=== PATIENT | female | born 1950 | race Caucasian/White ===

== ENCOUNTER 2024-07-17 08:37 | Outpatient (CLI) | payer OTHER ==
[2024-07-17] MEDS ORDERED: GADOTERATE MEGLUMINE 7.5 MMOL/15 ML VIAL IV ONE (10:45)
== END 2024-07-17 19:05 | disposition home or self-care (01) ==
LOC: SMI 08:37
PROVIDERS: ATTEND Student in an Organized Health Care Education/Training Program
DX: D49.0 Neoplasm of unspecified behavior of digestive system (principal); K57.30 Diverticulosis of large intestine without perforation or abscess without bleeding; D50.9 Iron deficiency anemia, unspecified
CPT/HCPCS: 74183; A9575